=== PATIENT | female | born 1950 | race Caucasian/White ===

== ENCOUNTER 2024-05-23 06:55 | Day surgery (SDC) | payer MEDICAID, OTHER ==
[~2024-05-23] VITALS: Ht 162.6 cm; Wt 95.3 kg
[2024-05-23] MEDS ORDERED: SIMETHICONE 40 MG/0.6 ML ML ONE (07:43)
[2024-05-23] MEDS ORDERED: MIDAZOLAM HCL 5 MG/5 ML VIAL ONE (07:44)
[2024-05-23] MEDS ORDERED: MEPERIDINE 100 MG INJ. 100 MG/ML VIAL ONE (07:44)
[2024-05-23 13:02] VITALS: PULSE 71; RESP 14
[2024-05-23 17:22] VITALS: O2SAT 98
== END 2024-05-23 09:45 | disposition home or self-care (01) ==
LOC: SGI 06:55 → SMU 07:01 → SGI 09:45
PROVIDERS: ATTEND Internal Medicine Gastroenterology
DX: D50.9 Iron deficiency anemia, unspecified (principal); D12.2 Benign neoplasm of ascending colon; K29.50 Unspecified chronic gastritis without bleeding; K31.89 Other diseases of stomach and duodenum; K57.30 Diverticulosis of large intestine without perforation or abscess without bleeding; K64.8 Other hemorrhoids; K44.9 Diaphragmatic hernia without obstruction or gangrene; E11.9 Type 2 diabetes mellitus without complications; J45.909 Unspecified asthma, uncomplicated; E03.9 Hypothyroidism, unspecified; Z79.82 Long term (current) use of aspirin; Z79.890 Hormone replacement therapy; Z79.4 Long term (current) use of insulin; Z79.899 Other long term (current) drug therapy
CPT/HCPCS: 45380; 45385; 43239; 82948; 88305; 88312; 88313; 99152; 99153; G0378; J2250; J2175